=== PATIENT | male | born 1990 | race Hispanic/Latino ===

== ENCOUNTER 2018-11-29 23:25 | Emergency (ER) | payer OTHER ==
[2018-11-30 00:46] LABS: RAPID GROUP A STREP NEGATIVE (NEGATIVE)
[2018-11-30] MEDS ORDERED: OSELTAMIVIR PHOSPHATE 75 MG CAP ONE (01:33)
== END 2018-11-30 01:45 | disposition home or self-care (01) ==
LOC: EDH 23:25
DX: J10.1 Influenza due to other identified influenza virus with other respiratory manifestations (principal); B01.9 Varicella without complication
CPT/HCPCS: 87804; 87880